=== PATIENT | female | born 1970 | race Caucasian/White ===

== ENCOUNTER 2018-08-27 01:58 | Day surgery (SDC) | payer OTHER ==
[~2018-08-27] VITALS: Ht 170.2 cm; Wt 74.8 kg
[~2018-08-27 01:58] MED LIST: BIRTH CONTROL; FLUO-177 PO; IBU800 PO; PER PO
[2018-08-27 06:10] VITALS: BP 112/72
[2018-08-27] MEDS ORDERED: NORMOSOL R SOLN(*) 1000 ML BAG 1,000 ML IV PRN (06:30)
[2018-08-27] MEDS ORDERED: LIDOCAINE/SOD BICARB 8.4% SYR ID ONE (06:30)
[2018-08-27] MEDS ORDERED: PROPOFOL EMUL(*) 10MG/ML 20 ML 40 ML ONE (07:04)
[2018-08-27] MEDS ORDERED: LIDOCAINE MPF 1% 5 ML VIAL ONE (07:04)
[2018-08-27 07:51] VITALS: BP 103/58
--- NOTE | 2018-08-27 08:08 | Short(Outpt) Discharge Summary ---
Discharge Summary Reason for Hosp/Final Diag: (1) Encounter for screening colonoscopy Hospital Course & Plan: pt presented for colonoscopy. she tolerated the procedure well. she will be discharged home when criteria met. Departure Discharge to: Home Discharge Instructions Home Meds Reported Medications [ Control] No Conflict Check 08/20/18 Fluoxetine Hcl (FLUOXETINE HCL) 20 Mg Capsule, 20 MG PO QDAY, CAPSULE 07/20/18 Diet: Regular Activity: As Tolerated Special Instructions: repeat colonoscopy in 10 yrs DEYA TIRADO August 27, 2018 08:08
--- NOTE | 2018-08-27 08:13 | NUR ---
0800 RN CARI turned O2 down from 10 L oxy to 3 L oxy 0804 Pt woke up. Removed oxy mask. pt sats >90% on RA 0805 Given ice water. Sipping. 0814 entered room with pt
[2018-08-27 08:15] VITALS: BP 113/59
[2018-08-27 08:20] VITALS: BP 104/68
[2018-08-27 08:23] VITALS: BP 105/75
--- NOTE | 2018-08-27 08:55 | NUR ---
0830 Orthostatics performed on pt 0828 Saline locked pt 0840 DC IV cath tip in tact 0844 Discharged and walked out with . Pt used bathroom before leaving. RN stood by before returning.
== END 2018-08-27 08:44 | disposition home or self-care (01) ==
LOC: OR 01:58
PROVIDERS: ATTEND Surgery
DX: Z12.11 Encounter for screening for malignant neoplasm of colon (principal); K57.30 Diverticulosis of large intestine without perforation or abscess without bleeding
CPT/HCPCS: 00812; 45378; J2001; J2704